=== PATIENT | female | born 1945 | race African-American/Black ===

== ENCOUNTER 2021-04-04 20:35 | Inpatient (IN) | payer BC, OTHER ==
[~2021-04-04] VITALS: Ht 157.5 cm; Wt 93.0 kg
[2021-04-04 22:59] LABS: CHLORIDE 109 mEq/L (98-107)
[2021-04-04 23:07] LABS: BASOPHILS % 0.4 % (0.0-2.0); EOSINOPHILS % 5.1 % (0.0-5.0); HEMATOCRIT. 32.4 % (36.0-48.0); HEMOGLOBIN. 10.8 g/dL (12.0-16.0); LYMPHOCYTES % 27.3 % (20.0-50.0); MEAN CORPUSCULAR HEMOGLOBIN 29.4 pg (28.0-32.0); MEAN CORPUSCULAR VOLUME 88.1 fL (81.0-99.0); MEAN PLATELET VOLUME 8.9 fl (7.4-10.4); MONOCYTES % 8.7 % (2.0-8.0); NEUTROPHILS % 58.5 % (40.0-76.0); PLATELET 281 x1000/uL (130-400); RED BLOOD CELL COUNT 3.68 mill/uL (4.2-5.4); RED CELL DISTRIBUTION WIDTH 16.4 % (11.6-14.6)
[2021-04-05] MEDS ORDERED: ASPIRIN 325MG TABLET PO ONE
[2021-04-05] MEDS ORDERED: MAGNESIUM/ALUMINUM HYDROXIDE/SIMETHICONE 30ML UDC PO PRN (07:45)
[2021-04-05] MEDS ORDERED: IPRATROPIUM/ALBUTEROL 0.5-3(2.5)MG/3ML NEB HHN PRN (07:45)
[2021-04-05] MEDS ORDERED: DOCUSATE SODIUM 100MG CAPSULE PO PRN (07:45)
[2021-04-05] MEDS ORDERED: GUAIFENESIN 200MG/10ML SUGAR FREE UDC PO PRN (07:45)
[2021-04-05] MEDS ORDERED: ACETAMINOPHEN 325MG TABLET PO PRN (07:45)
[2021-04-05] MEDS ORDERED: CLONIDINE 0.1MG TABLET PO PRN (07:45)
[2021-04-05] MEDS ORDERED: HYDROCODONE/ACETAMINOPHEN 5/325MG TABLET PO PRN (07:45)
[2021-04-05] MEDS ORDERED: LORAZEPAM 2MG/ML CPJ IV PRN (07:45)
[2021-04-05] MEDS ORDERED: DIPHENHYDRAMINE 50MG/ML VIAL IV PRN (07:45)
[2021-04-05] MEDS ORDERED: HYDRALAZINE 20MG/ML VIAL IV PRN (07:45)
[2021-04-05] MEDS ORDERED: ONDANSETRON HCL 4MG/2ML INJ IV PRN (07:45)
[2021-04-05] MEDS ORDERED: MORPHINE SULFATE 2 MG/ML CPJ (NOT FOR IM USE) IV PRN (07:45)
[2021-04-05 08:00] VITALS: BP 146/77
[2021-04-05] MEDS ORDERED: ASPIRIN 81MG EC TABLET PO SCH (09:00)
[2021-04-05] MEDS: ENOXAPARIN 30MG/0.3ML SYR SUBCUT SCH ×2 (09:33→20:49)
[2021-04-05] MEDS: DEXT 5%/0.45% NACL 1000ML 1,000 ML IV SCH (09:33)
[2021-04-05 12:00] VITALS: BP 159/83
[2021-04-05] MEDS: SODIUM CHLORIDE 0.9% INJ 3ML FLUSH IVF SCH ×2 (13:29→20:48)
[2021-04-05 14:59] LABS: CREATINE KINASE 169 IU/L (26-192)
[2021-04-05 15:00] LABS: T4 FREE 1.36 ng/dL (0.76-1.46)
[2021-04-05 15:01] LABS: CREATINE KINASE MB FRACTION 1.8 ng/mL (0.5-3.6)
[2021-04-05 16:00] VITALS: BP 144/61
[2021-04-05 20:00] VITALS: BP 133/86
[2021-04-06] VITALS: BP 141/68
[2021-04-06 00:19] LABS: CREATINE KINASE 163 IU/L (26-192)
[2021-04-06 00:20] LABS: CREATINE KINASE MB FRACTION 1.5 ng/mL (0.5-3.6)
[2021-04-06 04:00] VITALS: BP 128/77
[2021-04-06] MEDS: DEXT 5%/0.45% NACL 1000ML 1,000 ML IV SCH (05:47)
[2021-04-06] MEDS: SODIUM CHLORIDE 0.9% INJ 3ML FLUSH IVF SCH ×2 (05:47→14:00)
[2021-04-06 08:00] VITALS: BP 146/89
[2021-04-06] MEDS: ENOXAPARIN 30MG/0.3ML SYR SUBCUT SCH (08:22)
[2021-04-06] MEDS ORDERED: ASPIRIN 81MG EC TABLET PO SCH (09:00)
[2021-04-06] MEDS ORDERED: LOSARTAN POTASSIUM 50 MG TABLET PO SCH (09:00)
[2021-04-06 10:05] LABS: BASOPHILS % 0.4 % (0.0-2.0); HEMATOCRIT. 34.3 % (36.0-48.0); HEMOGLOBIN. 11.4 g/dL (12.0-16.0); MEAN CORPUSCULAR HEMOGLOBIN 29.6 pg (28.0-32.0); MEAN PLATELET VOLUME 8.8 fl (7.4-10.4); MONOCYTES % 5.9 % (2.0-8.0); NEUTROPHILS % 67.7 % (40.0-76.0); PLATELET 271 x1000/uL (130-400); RED BLOOD CELL COUNT 3.86 mill/uL (4.2-5.4); RED CELL DISTRIBUTION WIDTH 15.9 % (11.6-14.6)
[2021-04-06 10:14] LABS: CHLORIDE 108 mEq/L (98-107)
[2021-04-06 12:00] VITALS: BP 164/82
[2021-04-06 16:00] VITALS: BP 132/71
[2021-04-06 16:28] VITALS: BP 132/71
== END 2021-04-06 17:42 | disposition home health service (06) | DRG 74 ==
LOC: ER 23:40 → 8WST 04-05 02:30 → ENRESERV 04-05 04:22
PROVIDERS: ADMIT Internal Medicine; ATTEND Internal Medicine
DX: G50.0 Trigeminal neuralgia (principal); R20.0 Anesthesia of skin; R20.2 Paresthesia of skin; E78.5 Hyperlipidemia, unspecified; I10 Essential (primary) hypertension; E03.9 Hypothyroidism, unspecified; E66.01 Morbid (severe) obesity due to excess calories; Z68.37 Body mass index [BMI] 37.0-37.9, adult
CPT/HCPCS: 36415; 70551; 71045; 72141; 80053; 80061; 82550; 82553; 83036; 83880; 84439; 84443; 84484; 85025; 85379; 92610; 93005; 93306; 93880; 93970; 97162; 99291; J1650; J2060

== ENCOUNTER 2023-01-04 15:20 | Emergency (ER) | payer BC, OTHER ==
[~2023-01-04] VITALS: Ht 157.5 cm; Wt 97.0 kg
[2023-01-04 15:23] VITALS: BP 146/103
[2023-01-04 16:38] LABS: CHLORIDE 104 mEq/L (98-107)
[2023-01-04 16:40] LABS: BASOPHILS % 0.3 % (0.0-2.0); EOSINOPHILS % 3.1 % (0.0-5.0); HEMATOCRIT. 36.1 % (36.0-48.0); HEMOGLOBIN. 11.9 g/dL (12.0-16.0); LYMPHOCYTES % 23.9 % (20.0-50.0); MEAN CORPUSCULAR HEMOGLOBIN 29.3 pg (28.0-32.0); MEAN PLATELET VOLUME 8.5 fl (7.4-10.4); NEUTROPHILS % 63.7 % (40.0-76.0); PLATELET 262 x1000/uL (130-400); RED BLOOD CELL COUNT 4.05 mill/uL (4.2-5.4)
[2023-01-04] MEDS ORDERED: IBUP-2028 MT (18:02)
[2023-01-04] MEDS ORDERED: TOPUD PO (18:02)
[2023-01-04] MEDS ORDERED: BENZ150C3 MT (18:02)
== END 2023-01-04 18:26 | disposition home or self-care (01) ==
LOC: ER 15:20
DX: J06.9 Acute upper respiratory infection, unspecified (principal); Z20.822 Contact with and (suspected) exposure to COVID-19
CPT/HCPCS: 36415; 71045; 80053; 83880; 84484; 85025; 87426; 87804; 93005; 99285; C9803

== ENCOUNTER 2025-08-15 18:17 | Inpatient (IN) | payer BC, MEDICARE ==
[~2025-08-15] VITALS: Ht 157.5 cm; Wt 84.4 kg
[~2025-08-15 18:17] MED LIST: AMLO-371 PO; ASPI-1406 PO; ATEN50TA PO; CLOP-31 PO; IBUP-2028 MT; ROSU40TA; SYN175 PO; TOPUD PO
[2025-08-15 18:27] VITALS: O2SAT 100
[2025-08-15 19:30] LABS: BASOPHILS % 0.5 % (0.0-2.0); EOSINOPHILS % 3.6 % (0.0-5.0); HEMATOCRIT. 33.2 % (36.0-48.0); HEMOGLOBIN. 10.9 g/dL (12.0-16.0); LYMPHOCYTES % 20.0 % (20.0-50.0); MEAN PLATELET VOLUME 8.7 fl (7.4-10.4); MONOCYTES % 7.5 % (2.0-8.0); NEUTROPHILS % 68.4 % (40.0-76.0); PLATELET 244 x1000/uL (130-400); RED BLOOD CELL COUNT 3.83 mill/uL (4.2-5.4); RED CELL DISTRIBUTION WIDTH 17.2 % (11.6-14.6)
[2025-08-15 19:42] LABS: INR 1.0
[2025-08-15 19:45] LABS: CREATININE 1.1 mg/dL (0.6-1.0)
[2025-08-15 19:46] LABS: UREA NITROGEN BLOOD 13 mg/dL (9-23)
[2025-08-15 19:47] LABS: ASPARTATE AMINOTRANSFERASE 25 IU/L (<34); BILIRUBIN DIRECT 0.1 mg/dL (<=3.0); TROPONIN I HIGH SENSITIVITY 5 ng/L (3.0-34)
[2025-08-15 19:48] LABS: BILIRUBIN TOTAL 0.4 mg/dL (0.1-1.0); PROTEIN TOTAL 7.1 g/dL (6.0-8.3)
[2025-08-15 22:04] LABS: TROPONIN I HIGH SENSITIVITY 5 ng/L (3.0-34)
[2025-08-16] MEDS: ENOXAPARIN 100MG/ML SYR SUBCUT SCH (00:05)
[2025-08-16] MEDS ORDERED: ONDANSETRON HCL 4MG/2ML INJ IV PRN (02:15)
[2025-08-16] MEDS ORDERED: ACETAMINOPHEN 325MG TABLET PO PRN ×2 (02:15)
[2025-08-16] MEDS ORDERED: DOCUSATE SODIUM 100MG CAPSULE PO PRN (02:15)
[2025-08-16] MEDS ORDERED: IPRATROPIUM/ALBUTEROL 0.5-3(2.5)MG/3ML NEB HHN PRN (02:15)
[2025-08-16] MEDS: ASPIRIN 81MG TABLET PO SCH (02:34)
[2025-08-16] MEDS: CLOPIDOGREL 75MG TABLET PO SCH (02:35)
[2025-08-16 05:15] VITALS: BP 153/67; PULSE 75; RESP 18; TEMP 36.5848
[2025-08-16 07:02] LABS: *AMPHETAMINES SCREEN URINE NEGATIVE (NEGATIVE)
[2025-08-16 07:03] LABS: *BARBITURATES SCREEN URINE NEGATIVE (NEGATIVE); *BENZODIAZEPINES SCREEN URINE NEGATIVE (NEGATIVE); *COCAINE SCREEN URINE NEGATIVE (NEGATIVE); CANNABINOID URINE SCREEN NEGATIVE (NEGATIVE); ECSTASY MDMA SCREEN URINE NEGATIVE (NEGATIVE); METHADONE URINE SCREEN NEGATIVE (NEGATIVE); OPIATES URINE SCREEN NEGATIVE (NEGATIVE); PHENCYCLIDINE URINE SCREEN NEGATIVE (NEGATIVE)
[2025-08-16 08:00] VITALS: BP 166/89; PULSE 70; RESP 20; TEMP 36.4; O2SAT 98
[2025-08-16 12:00] VITALS: BP 163/77; PULSE 71; RESP 20; TEMP 36.4; O2SAT 99
[2025-08-16] MEDS: FUROSEMIDE 40MG/4ML VIAL IVP SCH (12:21)
[2025-08-16 12:27] LABS: TROPONIN I HIGH SENSITIVITY 4 ng/L (3.0-34)
[2025-08-16] MEDS: CLONIDINE 0.1MG TABLET PO PRN (14:21)
[2025-08-16 14:51] LABS: BASOPHILS % 0.6 % (0.0-2.0); EOSINOPHILS % 3.4 % (0.0-5.0); HEMATOCRIT. 34.8 % (36.0-48.0); HEMOGLOBIN. 11.2 g/dL (12.0-16.0); LYMPHOCYTES % 21.9 % (20.0-50.0); MEAN PLATELET VOLUME 9.1 fl (7.4-10.4); MONOCYTES % 7.5 % (2.0-8.0); NEUTROPHILS % 66.6 % (40.0-76.0); PLATELET 250 x1000/uL (130-400); RED BLOOD CELL COUNT 4.02 mill/uL (4.2-5.4); RED CELL DISTRIBUTION WIDTH 17.1 % (11.6-14.6)
[2025-08-16 16:00] VITALS: BP 122/68; PULSE 89; RESP 18; TEMP 36.6; O2SAT 97
[2025-08-16 20:00] VITALS: BP 123/71; PULSE 74; RESP 18; TEMP 36.3; O2SAT 97
[2025-08-16] MEDS: ATORVASTATIN CALCIUM 40MG TABLET PO SCH (20:26)
[2025-08-16] MEDS ORDERED: ATORVASTATIN CALCIUM 40MG TABLET PO SCH (21:00)
[2025-08-17] VITALS: BP 138/70; PULSE 72; RESP 18; TEMP 36.5; O2SAT 97
[2025-08-17 04:00] VITALS: BP 135/85; PULSE 74; RESP 18; TEMP 36.6; O2SAT 93
[2025-08-17] MEDS: LEVOTHYROXINE SODIUM 175MCG TABLET PO SCH (06:05)
[2025-08-17 06:31] LABS: CREATININE 1.0 mg/dL (0.6-1.0); UREA NITROGEN BLOOD 15 mg/dL (9-23)
[2025-08-17 08:00] VITALS: BP 141/72; PULSE 71; RESP 16; TEMP 37; O2SAT 98
[2025-08-17] MEDS ORDERED: VALSARTAN PO SCH (09:00)
[2025-08-17] MEDS ORDERED: [UNRECOGNIZED DRUG - OTHER] PO SCH (09:00)
[2025-08-17] MEDS ORDERED: AMLODIPINE PO SCH (09:00)
[2025-08-17] MEDS ORDERED: MEDICATION NOT ON FORMULARY EA (Rosuvastatin Calcium (Crestor) 40 MG) SCH (09:00)
[2025-08-17] MEDS: LOSARTAN 100 MG TABLET PO SCH (10:02)
[2025-08-17] MEDS: ENOXAPARIN 40MG/0.4ML SYR SUBCUT SCH (10:03)
[2025-08-17] MEDS: AMLODIPINE 5MG TABLET PO SCH (10:03)
[2025-08-17 12:00] VITALS: BP 133/73; PULSE 83; RESP 20; TEMP 36.7; O2SAT 96
[2025-08-17 20:00] VITALS: BP 137/86; PULSE 107; RESP 17; TEMP 36.4; O2SAT 96
[2025-08-18] VITALS: BP 124/51; PULSE 84; RESP 18; TEMP 36.5; O2SAT 95
[2025-08-18 04:00] VITALS: BP 131/86; PULSE 90; RESP 17; RESP 18; TEMP 36.3; TEMP 36.6; O2SAT 99
[2025-08-18 08:00] VITALS: BP 148/78; PULSE 99; RESP 18; TEMP 36.8; O2SAT 98
[2025-08-18 12:00] VITALS: BP 116/75; PULSE 85; RESP 18; TEMP 36.7; O2SAT 97
[2025-08-18] MEDS ORDERED: CLOP-31 PO (15:15)
[2025-08-18] MEDS ORDERED: ASPI-1406 PO (15:15)
[2025-08-18] MEDS ORDERED: ATEN50TA PO (15:15)
[2025-08-18] MEDS ORDERED: FURO-152 MT (15:15)
[2025-08-18] MEDS ORDERED: AMLO-371 PO (15:15)
[2025-08-18] MEDS ORDERED: ROSU40TA PO (15:15)
[2025-08-18] MEDS ORDERED: SYN175 PO (15:15)
== END 2025-08-18 16:16 | disposition home or self-care (01) | DRG 291 ==
LOC: ER 18:17 → 5WST 08-16 03:46 → EDBEDREQTM 08-16 04:01 → EDBEDREQDT 08-16 04:01 → EDBEDREQ 08-16 04:01 → ENRESERV 08-16 04:13
PROVIDERS: ADMIT Family Medicine Adult Medicine; ATTEND Family Medicine Adult Medicine
DX: I11.0 Hypertensive heart disease with heart failure (principal); I50.33 Acute on chronic diastolic (congestive) heart failure; I24.9 Acute ischemic heart disease, unspecified; N17.9 Acute kidney failure, unspecified; E78.00 Pure hypercholesterolemia, unspecified; E03.9 Hypothyroidism, unspecified; I25.110 Atherosclerotic heart disease of native coronary artery with unstable angina pectoris; R06.09 Other forms of dyspnea; Z95.5 Presence of coronary angioplasty implant and graft; Z79.02 Long term (current) use of antithrombotics/antiplatelets; Z79.82 Long term (current) use of aspirin; Z79.899 Other long term (current) drug therapy
CPT/HCPCS: 36415; 71045; 80048; 80076; 80305; 83735; 83880; 84484; 85025; 93005; 94640; 99285; J1650; J1938